=== PATIENT | female | born 1930 | race Caucasian/White ===

== ENCOUNTER 2016-09-03 08:52 | Inpatient (IN) | payer MEDICARE, BC ==
[~2016-09-03] VITALS: Ht 160 cm; Wt 55.8 kg
[2016-09-03] MEDS ORDERED: CENTTAB PO (09:05)
[2016-09-03] MEDS ORDERED: ARIC10TA PO (09:05)
[2016-09-03 11:48] LABS: BASO % 0.2 % (0.0-1.0); EOS # 0.2 K/mm3 (0.0-0.50); EOS % 2.1 % (0.0-3.0); LARGE UNSTAINED CELL # 0.3 K/mm3 (0.0-0.4); LARGE UNSTAINED CELL % 2.3 % (0.0-4.0); LYMPH # 1.7 K/mm3 (1.5-4.5); LYMPH % 15.7 % (24.0-44.0); MEAN CORPUSCULAR HEMOGLOBIN 31.8 pg (27.0-33.0); MEAN CORPUSCULAR HGB CONC 34.2 g/dl (32.0-36.5); MEAN CORPUSCULAR VOLUME 93.1 fl (80.0-96.0); MONO # 0.6 K/mm3 (0.0-0.8); MONO % 5.6 % (0.0-5.0); NEUTROPHILS # 8.1 K/mm3 (1.8-7.7); NEUTROPHILS % 74.1 % (36.0-66.0); PLATELET COUNT, AUTOMATED 332 k/mm3 (150-450); RED CELL DISTRIBUTION WIDTH 13.2 % (11.5-14.5); WHITE BLOOD COUNT 10.9 K/mm3 (4.0-10.0)
[2016-09-03 11:54] LABS: ANION GAP 10 MEQ/L (8-16); BLOOD UREA NITROGEN 19 MG/DL (7-18); CALCIUM LEVEL 10.4 MG/DL (8.8-10.2); CARBON DIOXIDE LEVEL 28 MEQ/L (21-32); CHLORIDE LEVEL 99 MEQ/L (98-107); GLOMERULAR FILTRATION RATE > 60.0 (>32); GLUCOSE, FASTING 111 MG/DL (83-110); MAGNESIUM LEVEL 2.2 MG/DL (1.8-2.4); POTASSIUM SERUM 3.3 MEQ/L (3.5-5.1); SODIUM LEVEL 137 MEQ/L (136-145)
--- NOTE | 2016-09-03 13:10 | REP ---
CHEST, TWO VIEWS: COMPARISON: 06/13/2009. There is no evidence of acute infiltrate. There is mild scattered interstitial fibrotic scarring. Heart is normal in size. There is mild calcification and tortuosity of the thoracic aorta. The mediastinal silhouette is unchanged. There are degenerative changes of the spine. IMPRESSION: Stable chronic findings without evidence of acute pulmonary disease. Signed by Chava Castellon MD 09/03/2016 04:50 P
[2016-09-03] MEDS ORDERED: POTASSIUM CHLORIDE 10 MEQ SR TABLET PO ONE (13:45)
[2016-09-03] MEDS ORDERED: APIXABAN 2.5 MG TAB (ELIQUIS) PO ONE (13:45)
[2016-09-03] MEDS: cefTRIAXone SOD 1 GM in D5W MINI-BAG PLUS 50 ML IV SCH (13:58)
[2016-09-03] MEDS ORDERED: METOPROLOL TART 25 MG TABLET PO ONE (14:00)
[2016-09-03 14:41] LABS: ALBUMIN 3.9 GM/DL (3.2-5.2); ALBUMIN/GLOBULIN RATIO 1.05 (1.00-1.93); ALKALINE PHOSPHATASE 133 U/L (45-117); ALT/SGPT 25 U/L (12-78); ANION GAP 10 MEQ/L (8-16); AST/SGOT 27 U/L (15-37); BILIRUBIN,TOTAL 0.6 MG/DL (0.2-1.0); BLOOD UREA NITROGEN 18 MG/DL (7-18); CALCIUM LEVEL 9.5 MG/DL (8.8-10.2); CARBON DIOXIDE LEVEL 27 MEQ/L (21-32); CHLORIDE LEVEL 99 MEQ/L (98-107); CREATININE FOR GFR 0.82 MG/DL (0.55-1.02); GLOMERULAR FILTRATION RATE > 60.0 (>32); GLUCOSE, FASTING 110 MG/DL (83-110); POTASSIUM SERUM 3.7 MEQ/L (3.5-5.1); SODIUM LEVEL 136 MEQ/L (136-145); TOTAL PROTEIN 7.6 GM/DL (6.4-8.2)
[2016-09-03] MEDS: DONEPEZIL 5 MG TAB PO SCH (17:37)
[2016-09-03] MEDS: MULTIVITAMINS/MINERALS THERAP 1 TAB PO SCH (17:37)
[2016-09-03] MEDS: METOPROLOL TART 12.5 MG PER 1/2 TAB PO SCH (17:39)
--- NOTE | 2016-09-03 18:55 | HPEPDOC ---
General Date of Admission Sep 03, 2016 at 14:18 Primary Care Physician: Isaias Etienne MD Chief Complaint The patient is a 86-year-old female admitted with a reason for visit of Uti and suspected a.fib. Source: Family Exam Limitations: Dementia Timing/Duration: Week(s) (one) Severity: Moderate History of Present Illness Ms. Beard is an 86 y/o female with past medical history of dementia who presents with her son at bedside today. The patient herself is a very poor historian due to advanced dementia and often gets confused at questioning, thus much of her review of systems and history was obtained by her son. Her son states that he has been visiting his mom for the past week but that she usually lives home alone, he has noticed her becoming increasingly fatigued and tired for the past week, she has also been complaining about muscle cramps in her legs that awake her up at night, heartburn and upset stomach which led to one episode of yellow tinged non-bloody emesis 1 day prior. The patient's son states that he gave his mother Tums which helped relieve her heartburn, and has thought that her appetite has been decreased for the past week, but is unsure if she sustained any weight loss. He also states that his mother does not take her donepezil regularly but that he has been giving it to her for the past 3 days he's been visiting. He also noticed her to have a dry nonproductive cough when she would lie down flat and thought she was getting more short of breath with activity for the past week. The patient has a primary care doctor in [facility] but has not seen them in many, many years. The patient's son does not believe that his mother has been experiencing any fever, chills, chest pain or palpitations, at least not what she has admitted to him. Home Medications Scheduled Donepezil Hydrochloride (Aricept) 10 Mg Tab, 10 MG PO DAILY, (Reported) SUPPOSED TO BE QHS-FAMILY MEMBER HAS BEEN GIVING IN THE AM BECAUSE PT WAS NOT TAKING IT Multivitamins (Centrum Silver) 1 Tab Tab, 1 TAB PO DAILY, (Reported) Allergies Coded Allergies: Atenolol (Unverified Allergy, Severe, SOB, 09/03/16) NUTS (Verified Allergy, Unknown, 09/03/16) PT OR FAMILY NOT ABLE TO STATE THE REACTION TO THE NUTS Past Medical History Medical History Dementia Social History Patient lives at home by herself Review of Symptoms Constitutional: Reports: Other (review of systems was largely unobtainable as patient has dementia and has difficulty understanding questions) Pulmonary: Denies: Dyspnea Cardiovascular: Denies: Chest Pain, Palpitations Psych: Reports: Other Psych (dementia) Physical Examination General Exam: Positive: Alert, Cooperative, No Acute Distress Eye Exam: Positive: Conjunctiva & lids normal, EOMI, Negative: Sclera icteric, Ptosis Neck Exam: Positive: Supple Chest Exam: Positive: Clear to auscultation, Normal air movement, Negative: Rales, Rhonchi, Wheezing Heart Exam: Positive: Tachycardic, Normal S1, Normal S2, Murmurs, Negative: Rate Normal Telemetry: Positive: Atrial fibrillation Abdomen Exam: Positive: Normal bowel sounds, Soft, Negative: BS Hyperactive, BS Hypoactive, Tenderness Extremity Exam: Negative: Cyanosis, Edema Vital Signs Vital Signs Date Time Temp Pulse Resp B/P (MAP) Pulse Ox O2 Delivery O2 Flow Rate FiO2 09/03/16 13:56 170/98 09/03/16 12:37 102 95 09/03/16 09:00 97.2 18 Room Air Laboratory Data Labs 24H Laboratory Tests 2 09/03/16 11:25: White Blood Count 10.9H, Red Blood Count 4.40, Hemoglobin 14.0, Hematocrit 41.0 , Mean Corpuscular Volume 93.1, Mean Corpuscular Hemoglobin 31.8, Mean Corpuscular Hemoglobin Concent 34.2, Red Cell Distribution Width 13.2, Platelet Count 332, Neutrophils (%) (Auto) 74.1H, Lymphocytes (%) (Auto) 15.7L, Monocytes (%) (Auto) 5.6H, Eosinophils (%) (Auto) 2.1, Basophils (%) (Auto) 0.2 , Neutrophils # (Auto) 8.1H, Lymphocytes # (Auto) 1.7, Monocytes # (Auto) 0.6, Eosinophils # (Auto) 0.2, Basophils # (Auto) 0.0, Large Unclassified Cells % 2.3 , Large Unclassified Cells # 0.3, Urine Appearance CLOUDYH, Urine Color GABY, Urine pH 5.0, Urine Specific [place] 1.026, Urine Protein 1+H, Urine Glucose (UA ) NEGATIVE, Urine Ketones TRACEH, Urine Urobilinogen 0.2, Urine Bilirubin NEGATIVE, Urine Leukocyte Esterase 2+H, Urine Blood NEGATIVE, Urine Nitrite POSITIVE, Urine WBC (Auto) 44H, Urine RBC (Auto) 21H, Urine Hyaline Casts (Auto ) 0, Urine Bacteria (Auto) 3+H, Urine Squamous Epithelial Cells 8, Urine Mucus ( Auto) SMALL, Urine Sperm (Auto) , Anion Gap 10, Glomerular Filtration Rate > 60.0, Blood Urea Nitrogen 19H, Creatinine 0.90, Sodium Level 137, Potassium Level 3.3L, Chloride Level 99, Carbon Dioxide Level 28, Calcium Level 10.4H, Total Creatine Kinase 150, Magnesium Level 2.2, Creatine Kinase MB 3.5, Creatine Kinase MB Relative Index 2.33, Troponin I 0.08 09/03/16 14:11: Anion Gap 10, Glomerular Filtration Rate > 60.0, Blood Urea Nitrogen 18, Creatinine 0.82, Sodium Level 136, Potassium Level 3.7, Chloride Level 99, Carbon Dioxide Level 27, Calcium Level 9.5, Magnesium Level 2.0, Lactic Acid Level 1.9, Aspartate Amino Transf (AST/SGOT) 27, Alanine Aminotransferase (ALT/ SGPT) 25, Alkaline Phosphatase 133H, Total Bilirubin 0.6, Total Protein 7.6, Albumin 3.9, Albumin/Globulin Ratio 1.05 CBC/BMP Laboratory Tests 09/03/16 11:25 Red Blood Count 4.40, Mean Corpuscular Volume 93.1, Mean Corpuscular Hemoglobin 31.8, Mean Corpuscular Hemoglobin Concent 34.2, Red Cell Distribution Width 13.2 , Neutrophils (%) (Auto) 74.1 H, Lymphocytes (%) (Auto) 15.7 L, Monocytes (%) ( Auto) 5.6 H, Eosinophils (%) (Auto) 2.1, Basophils (%) (Auto) 0.2, Neutrophils # (Auto) 8.1 H, Lymphocytes # (Auto) 1.7, Monocytes # (Auto) 0.6, Eosinophils # (Auto) 0.2, Basophils # (Auto) 0.0, Calcium Level 10.4 H, Total Creatine Kinase 150 09/03/16 14:11 Calcium Level 9.5, Aspartate Amino Transf (AST/SGOT) 27, Alanine Aminotransferase (ALT/SGPT) 25, Alkaline Phosphatase 133 H, Total Bilirubin 0.6 , Total Protein 7.6, Albumin 3.9 Microbiology Microbiology 09/03/16 Blood Culture, Received Pending 09/03/16 Urine Culture, Received Pending Problems (1) UTI (urinary tract infection) Status: Acute Response to Treatment: Stable Problem Text: Patient was found to have urinary tract infection Urine culture pending Had begun patient on ceftriaxone Will continue to monitor (2) Fatigue Status: Acute Response to Treatment: Stable Problem Text: Likely secondary to patient's advanced dementia and urinary tract infection treating UTI with antibiotics PT OT ordered Continue to monitor (3) A-fib Status: Acute Response to Treatment: Stable Problem Text: New onset, ekg in emergency department showed atrial fibrillation Rate 102 Patient admitted to PCU Telemetry monitoring Patient started on Eliquis and metoprolol (4) Hypercalcemia Status: Acute Response to Treatment: Stable Problem Text: The patient's calcium was 10.4, repeat 9.5 Have ordered SPEP, UPEP and vitamin D and PTH Continue to monitor (5) DVT prophylaxis Status: Acute Response to Treatment: Stable Problem Text: SCD teds Plan / VTE VTE Prophylaxis Ordered?: Yes GME ATTESTATION GME ATTESTATION My preceptor for this patient encounter was physically present in the building during the encounter and was fully available. As needed, all aspects of the patient interview, examination, medical decision making process, and medical care plan development were reviewed and approved by the preceptor. Preceptor is aware and concurs with the plan as stated in the body of this note and will attest to such by his/her cosignature. ATTENDING NOTE I was called by ER physician to evaluate a patient with suspected atrial fibrillation, weakness/ fatigue and urinary tract infection. 1. Tachycardia - suspected to be atrial fibrillation, likely sinus tachycardia - Upon review of EKG, the rhythm does not appear to be atrial fibrillation - There is no need to continue with full anticoagulation - Will discontinue Eliquis - Will continue with metoprolol for rate control 2. Urinary tract infection - Will continue with ceftriaxone - Awaiting results of culture 3. Hypercalcemia (mild) - Vitamin D and PTH ordered - c/w gentle IV fluid hydration 4. Weakness / Fatigue - possibly 2/2 deconditioning, dementia, urinary tract infection - will get PT / OT ABDIRIZAK SILVA DO Sep 03, 2016 17:14 AUGUSTUS BAH MD Sep 04, 2016 14:40
[2016-09-03 18:56] LABS: FREE T4 1.13 NG/DL (0.76-1.46)
[2016-09-03] MEDS ORDERED: NS 1,000 ML IV ONE (20:30)
[2016-09-04] MEDS: METOPROLOL TART 12.5 MG PER 1/2 TAB PO SCH ×5 (00:07→23:51)
[2016-09-04 01:05] VITALS: BP 164/85
[2016-09-04 04:00] VITALS: BP 179/94
[2016-09-04 07:10] LABS: BASO % 0.4 % (0.0-1.0); EOS # 0.4 K/mm3 (0.0-0.50); LARGE UNSTAINED CELL # 0.2 K/mm3 (0.0-0.4); LARGE UNSTAINED CELL % 2.5 % (0.0-4.0); LYMPH # 1.5 K/mm3 (1.5-4.5); LYMPH % 16.5 % (24.0-44.0); MEAN CORPUSCULAR HEMOGLOBIN 32.2 pg (27.0-33.0); MEAN CORPUSCULAR HGB CONC 34.5 g/dl (32.0-36.5); MEAN CORPUSCULAR VOLUME 93.3 fl (80.0-96.0); MONO # 0.6 K/mm3 (0.0-0.8); MONO % 6.6 % (0.0-5.0); NEUTROPHILS # 6.3 K/mm3 (1.8-7.7); NEUTROPHILS % 70.1 % (36.0-66.0); PLATELET COUNT, AUTOMATED 262 k/mm3 (150-450); RED CELL DISTRIBUTION WIDTH 13.3 % (11.5-14.5)
[2016-09-04 07:30] LABS: ANION GAP 9 MEQ/L (8-16); BLOOD UREA NITROGEN 15 MG/DL (7-18); CALCIUM LEVEL 8.8 MG/DL (8.8-10.2); CARBON DIOXIDE LEVEL 26 MEQ/L (21-32); CHLORIDE LEVEL 105 MEQ/L (98-107); CREATININE FOR GFR 0.71 MG/DL (0.55-1.02); GLOMERULAR FILTRATION RATE > 60.0 (>32); GLUCOSE, FASTING 93 MG/DL (83-110); POTASSIUM SERUM 4.1 MEQ/L (3.5-5.1); SODIUM LEVEL 140 MEQ/L (136-145)
[2016-09-04 09:52] LABS: FREE T4 1.17 NG/DL (0.76-1.46)
[2016-09-04] MEDS: MULTIVITAMINS/MINERALS THERAP 1 TAB PO SCH (11:29)
[2016-09-04] MEDS: DONEPEZIL 5 MG TAB PO SCH (11:30)
[2016-09-04] MEDS: cefTRIAXone SOD 1 GM in D5W MINI-BAG PLUS 50 ML IV SCH (14:25)
[2016-09-04 16:30] VITALS: BP 172/96
[2016-09-04] MEDS: LISINOPRIL 20 MG TAB PO SCH (18:37)
[2016-09-04] MEDS: ENOXAPARIN 40 MG/0.4 ML SYRINGE (J1650) SC SCH (18:38)
--- NOTE | 2016-09-04 19:23 | IPN ---
DATE: 09/04/2016 SUBJECTIVE: Patient seen and examined in the emergency room holding area. Patient is a poor historian. Shows some signs of dementia. Patient does not have any acute changes since admission. OBJECTIVE: VITAL SIGNS: Temperature 97, pulse 67, respirations 20, blood pressure 179/94, pulse oximetry 96% in room air. GENERAL: Patient is alert and awake. Patient is not fully oriented and shows some signs of dementia. HEENT: Normocephalic, atraumatic. Extraocular motor grossly intact. CARDIOVASCULAR: Positive S1, S2. Regular rate. LUNGS: Clear to auscultation bilaterally. No wheezes. ABDOMEN: Soft, nontender, nondistended. Bowel sounds present. EXTREMITIES: No edema. No cyanosis. LABORATORY DATA: WBC 9, hemoglobin 12.6, hematocrit 36.6, platelet count 262. Sodium 140, potassium 4.1, chloride 105, carbon dioxide 26, BUN 15, creatinine 0.71, GFR greater than 60, fasting glucose 93, calcium 8.8. Thyroid stimulating hormone (TSH) 5.92. Free T4 1.17. Urine culture is pending. ASSESSMENT AND PLAN: 1. Urinary tract infection. On admission, patient was started on Rocephin. Currently, we are waiting for the urine cultures. 2. Hypertension. Patient is started on metoprolol; however, patient continues to have elevated blood pressure. Patient is on lisinopril. Will adjust the blood pressure continuously. 3. Dementia. Patient is on Aricept. 4. Deep venous thrombosis (DVT) prophylaxis. Patient is on thromboembolitic deterrents (TEDs) and sequentials and patient will be on Lovenox.
[2016-09-04 20:00] VITALS: BP 142/90
[2016-09-04 23:59] VITALS: BP 128/63
[2016-09-05] MEDS ORDERED: SLF 3 ML SYR IV PRN (03:15)
[2016-09-05 04:45] VITALS: BP 126/81
[2016-09-05] MEDS: SLF 3 ML SYR IV SCH ×3 (05:01→20:44)
[2016-09-05] MEDS: METOPROLOL TART 12.5 MG PER 1/2 TAB PO SCH (05:01)
[2016-09-05 05:30] LABS: BASO % 0.5 % (0.0-1.0); EOS # 0.4 K/mm3 (0.0-0.50); EOS % 4.4 % (0.0-3.0); LARGE UNSTAINED CELL # 0.2 K/mm3 (0.0-0.4); LARGE UNSTAINED CELL % 1.8 % (0.0-4.0); LYMPH # 1.4 K/mm3 (1.5-4.5); MEAN CORPUSCULAR HEMOGLOBIN 31.2 pg (27.0-33.0); MEAN CORPUSCULAR HGB CONC 33.3 g/dl (32.0-36.5); MEAN CORPUSCULAR VOLUME 93.7 fl (80.0-96.0); MONO # 0.5 K/mm3 (0.0-0.8); MONO % 5.3 % (0.0-5.0); NEUTROPHILS # 6.9 K/mm3 (1.8-7.7); NEUTROPHILS % 72.9 % (36.0-66.0); PLATELET COUNT, AUTOMATED 249 k/mm3 (150-450); RED CELL DISTRIBUTION WIDTH 13.2 % (11.5-14.5); WHITE BLOOD COUNT 9.5 K/mm3 (4.0-10.0)
[2016-09-05 05:45] LABS: ANION GAP 8 MEQ/L (8-16); BLOOD UREA NITROGEN 17 MG/DL (7-18); CALCIUM LEVEL 8.2 MG/DL (8.8-10.2); CARBON DIOXIDE LEVEL 27 MEQ/L (21-32); CHLORIDE LEVEL 105 MEQ/L (98-107); CREATININE FOR GFR 0.76 MG/DL (0.55-1.02); GLOMERULAR FILTRATION RATE > 60.0 (>32); GLUCOSE, FASTING 93 MG/DL (83-110); POTASSIUM SERUM 4.2 MEQ/L (3.5-5.1); SODIUM LEVEL 140 MEQ/L (136-145)
[2016-09-05 08:00] VITALS: BP 129/87
--- NOTE | 2016-09-05 08:18 | ECGEPIP ---
Stationary ECG Study [facility] Test Date: 2016-09-04 Pat Name: ANALILIA BONNER Department: Room: [place] [address] Gender: F Telecommunication Tower Technician: LENNY : 1930 Requested By: BRIANNE FAULKNER Order Number: [id number] Reading MD: Cj Castelan Measurements Intervals Boaz Rate: 67 P: 67 VT: 156 QRS: -16 QRSD: 113 T: 30 QT: 431 QTc: 457 Interpretive Statements Normal sinus rhythm with PACs Right bundle branch block Compared to prior tracing of 09/03/2016, atrial fibrillation has resolved (but prior tracing baseline artifact makes rhythm interpretation difficult) Electronically Signed On 09-05-2016 8:18:17 EDT by Cj Castelan
--- NOTE | 2016-09-05 08:28 | ECGEPIP ---
Stationary ECG Study [facility] - ED Test Date: 2016-09-03 Pat Name: ANALILIA BONNER Department: Room: - Gender: F Design And Sales Consultant: : 1930 Requested By: YOLANDA Brand PA-C Order Number: [id number] Reading MD: Renetta Chadwick Measurements Intervals Joanna Rate: 102 P: KS: 0 QRS: 3 QRSD: 122 T: 23 QT: 366 QTc: 478 Interpretive Statements ATRIAL FIBRILLATION WITH RAPID VENTRICULAR RESPONSE PROBABLE - BASELINE ARTIFACT LIMITS INTERPRETATION RIGHT BUNDLE BRANCH BLOCK NO PRIOR FOR COMPARISON Electronically Signed On 09-05-2016 8:28:22 EDT by Renetta Chadwick
[2016-09-05] MEDS: MULTIVITAMINS/MINERALS THERAP 1 TAB PO SCH (08:58)
[2016-09-05] MEDS: DONEPEZIL 5 MG TAB PO SCH (08:58)
[2016-09-05] MEDS: LISINOPRIL 20 MG TAB PO SCH (08:58)
[2016-09-05 11:35] VITALS: BP 130/90
[2016-09-05] MEDS: cefTRIAXone SOD 1 GM in D5W MINI-BAG PLUS 50 ML IV SCH (13:06)
--- NOTE | 2016-09-05 13:52 | IPNPDOC ---
Subjective Date Seen The patient was seen on 09/05/16. Subjective Chief Complaint/HPI This is an 86-year-old patient of Dr. Isaias Etienne, with a history of senile dementia, paroxysmal supraventricular tachycardia, GERD, anxiety, and COPD he was admitted 09/03/2016 for altered mental status, UTI, and atrial fibrillation without rapid ventricular response. Events since last encounter Patient states that she feels well today. She states that she doesn't feel unsteady on her feet, and in fact boasts "I jog on a treadmill twice every day. " She also believes that it's 2008. Later discussed with the patient's son, who states that the patient is minimally active at home, and has declined to the point that he has moved from [place] to become her primary caregiver. Patient otherwise has no complaints or concerns. Sons only concern is that the patient does not eat or drink much. He also feels like she sleeps too frequently, and doesn't seem interested in any activities. Constitutional: Denies: Chills, Fever, Malaise Skin: Denies: Rash, Lesions Pulmonary: Denies: Dyspnea, Cough Cardiovascular: Denies: Chest Pain, Palpitations, Orthopnea Gastrointestinal: Denies: Nausea, Vomiting, Abdominal Pain, Diarrhea, Constipation Genitourinary: Denies: Dysuria, Frequency, Incontinence Hematologic: Denies: Bruising Neurological: Reports: Confusion Psych: Reports: Depression, Memory Issues, Denies: Thoughts of Self Harm, Anger, Thoughts of Harming Other Objective Physical Examination General Exam: Positive: Alert, Cooperative, No Acute Distress Eye Exam: Positive: Conjunctiva & lids normal, EOMI, Negative: Sclera icteric, Ptosis ENT Exam: Positive: Mucous membr. moist/pink Neck Exam: Positive: Supple, Negative: JVD Chest Exam: Positive: Clear to auscultation, Normal air movement, Negative: Rales, Rhonchi, Wheezing Heart Exam: Positive: Normal S1, Normal S2, Murmurs (1/6 systolic ejection murmur), Negative: Rate Normal Telemetry: Positive: Atrial fibrillation (without rapid ventricular response) Abdomen Exam: Positive: Normal bowel sounds, Soft, Negative: BS Hyperactive, BS Hypoactive, Tenderness Extremity Exam: Positive: Normal pulses, Negative: Cyanosis, Edema Skin Exam: Positive: Nl turgor and temperature Psych Exam: Positive: Oriented x 3 (oriented to [employer], name, and president but not year), Negative: Mood NL (flat affect), Memory Intact (believes that she still jogs on a treadmill twice every day, when she is in fact minimally active) Assessment /Plan Problems (1) UTI (urinary tract infection) Status: Acute Response to Treatment: Stable Problem Text: Escherichia coli pansensitive. -Change to Keflex 500 mg PO twice daily (2) Fatigue Status: Acute Response to Treatment: Stable Problem Text: Advanced dementia and urinary tract infection may be contributed factors. However, patient has positive depression screening. -By mouth Keflex - Follow up PT recommendations -Start mirtazapine 50 mg at bedtime (3) A-fib Status: Acute Response to Treatment: Stable Problem Text: New onset, ekg in emergency department showed atrial fibrillation without rapid ventricular response. Unclear why she was started on a beta tanna at this point, as she was volume depleted and is elderly. I discussed risks and benefits of anticoagulation in the setting of atrial fibrillation her age. Strongly recommended against Coumadin or even full strength aspirin in her case. Would limit the patient to daily baby aspirin, as she is at high risk of intracranial hemorrhage. Patient was never in rapid ventricular response, and is currently asymptomatic. She does not need further continuous telemetry. -Transfer to the floor -Stop beta tanna as patient has been bradycardic all night -Daily baby aspirin for stroke risk reduction (4) DVT prophylaxis Status: Acute Response to Treatment: Stable Problem Text: SCD teds Plan/VTE VTE Prophylaxis Ordered?: Yes (Lovenox 40 mg daily, would not recommend discharging on anticoagulation) Plan Advance Directives: Other Advance Directive (reviewed most form with patient's son who is her health proxy. Patient currently wishes to be full code.) Plan for discharge 09/06/2016 pending stable A. fib and PT recommendations for home safety. When ready for discharge, she will return home with her son. VS, I&O, 24H, Fishbone Vital Signs/I&O Vital Signs Date Time Temp Pulse Resp B/P (MAP) Pulse Ox O2 Delivery O2 Flow Rate FiO2 09/05/16 11:35 99.1 130 18 130/90 (103) 96 Room Air I&O- Last 24 Hours up to 6 AM 09/05/16 05:59 Intake Total 1770 ml Output Total 1300 ml Balance 470 ml Laboratory Data 24H LABS Laboratory Tests 2 09/05/16 05:15: White Blood Count 9.5, Red Blood Count 3.87L, Hemoglobin 12.1, Hematocrit 36.3, Mean Corpuscular Volume 93.7, Mean Corpuscular Hemoglobin 31.2, Mean Corpuscular Hemoglobin Concent 33.3, Red Cell Distribution Width 13.2, Platelet Count 249, Neutrophils (%) (Auto) 72.9H, Lymphocytes (%) (Auto) 15.0L, Monocytes (%) (Auto) 5.3H, Eosinophils (%) (Auto) 4.4H, Basophils (%) (Auto) 0.5 , Neutrophils # (Auto) 6.9, Lymphocytes # (Auto) 1.4L, Monocytes # (Auto) 0.5, Eosinophils # (Auto) 0.4, Basophils # (Auto) 0.0, Large Unclassified Cells % 1.8 , Large Unclassified Cells # 0.2, Anion Gap 8, Glomerular Filtration Rate > 60.0 , Blood Urea Nitrogen 17, Creatinine 0.76, Sodium Level 140, Potassium Level 4.2 , Chloride Level 105, Carbon Dioxide Level 27, Calcium Level 8.2L CBC/BMP Laboratory Tests 09/05/16 05:15 Red Blood Count 3.87 L, Mean Corpuscular Volume 93.7, Mean Corpuscular Hemoglobin 31.2, Mean Corpuscular Hemoglobin Concent 33.3, Red Cell Distribution Width 13.2, Neutrophils (%) (Auto) 72.9 H, Lymphocytes (%) (Auto) 15.0 L, Monocytes (%) (Auto) 5.3 H, Eosinophils (%) (Auto) 4.4 H, Basophils (%) (Auto) 0.5, Neutrophils # (Auto) 6.9, Lymphocytes # (Auto) 1.4 L, Monocytes # ( Auto) 0.5, Eosinophils # (Auto) 0.4, Basophils # (Auto) 0.0, Calcium Level 8.2 L Microbiology Microbiology 09/03/16 Blood Culture - Preliminary, Resulted No growth after 24 hours . All specim... 09/03/16 Blood Culture - Preliminary, Resulted No growth after 24 hours . All specim... 09/03/16 Urine Culture - Final, Complete Escherichia Coli ADAIR ATKINSON MD Sep 05, 2016 13:52
[2016-09-05 15:17] VITALS: BP 134/96
[2016-09-05] MEDS: ENOXAPARIN 40 MG/0.4 ML SYRINGE (J1650) SC SCH (18:21)
[2016-09-05] MEDS: MIRTAZAPINE 15 MG TAB PO SCH (20:44)
[2016-09-05] MEDS: CEPHALEXIN 500 MG CAP PO SCH (20:44)
[2016-09-05 20:55] VITALS: BP 121/66
[2016-09-06] MEDS: SLF 3 ML SYR IV SCH ×3 (05:48→21:19)
[2016-09-06 06:33] LABS: BASO # 0.1 K/mm3 (0.0-0.2); BASO % 0.7 % (0.0-1.0); EOS # 0.5 K/mm3 (0.0-0.50); EOS % 5.3 % (0.0-3.0); LARGE UNSTAINED CELL # 0.2 K/mm3 (0.0-0.4); LARGE UNSTAINED CELL % 2.3 % (0.0-4.0); MEAN CORPUSCULAR HEMOGLOBIN 30.7 pg (27.0-33.0); MEAN CORPUSCULAR HGB CONC 32.5 g/dl (32.0-36.5); MEAN CORPUSCULAR VOLUME 94.3 fl (80.0-96.0); MONO # 0.6 K/mm3 (0.0-0.8); MONO % 6.5 % (0.0-5.0); NEUTROPHILS # 5.5 K/mm3 (1.8-7.7); NEUTROPHILS % 62.2 % (36.0-66.0); PLATELET COUNT, AUTOMATED 285 k/mm3 (150-450); RED CELL DISTRIBUTION WIDTH 13.4 % (11.5-14.5); WHITE BLOOD COUNT 8.8 K/mm3 (4.0-10.0)
[2016-09-06 06:35] LABS: ANION GAP 7 MEQ/L (8-16); BLOOD UREA NITROGEN 20 MG/DL (7-18); CALCIUM LEVEL 8.5 MG/DL (8.8-10.2); CARBON DIOXIDE LEVEL 27 MEQ/L (21-32); CHLORIDE LEVEL 106 MEQ/L (98-107); CREATININE FOR GFR 0.74 MG/DL (0.55-1.02); GLOMERULAR FILTRATION RATE > 60.0 (>32); GLUCOSE, FASTING 92 MG/DL (83-110); SODIUM LEVEL 140 MEQ/L (136-145)
[2016-09-06 07:00] VITALS: BP 107/67
[2016-09-06] MEDS: LISINOPRIL 20 MG TAB PO SCH ×3 (09:00→10:00)
[2016-09-06] MEDS: CEPHALEXIN 500 MG CAP PO SCH ×2 (09:54→21:19)
[2016-09-06] MEDS: DONEPEZIL 5 MG TAB PO SCH (09:54)
[2016-09-06 09:56] VITALS: BP 104/72
--- NOTE | 2016-09-06 11:14 | IPNPDOC ---
Subjective Date Seen The patient was seen on 09/06/16. Subjective Chief Complaint/HPI The patient is a 86-year-old female admitted with a reason for visit of Afib Uti. General: Denies: Chills, Night Sweats Constitutional: Denies: Chills, Fever Eyes: Denies: Pain, Vision change ENT: Denies: Head Aches, Ear Pain Skin: Denies: Rash, Lesions Pulmonary: Denies: Dyspnea, Cough Cardiovascular: Denies: Chest Pain, Palpitations Gastrointestinal: Denies: Nausea, Vomiting Genitourinary: Denies: Dysuria, Frequency Hematologic: Denies: Bruising, Bleeding Excessively Musculoskeletal: Denies: Neck Pain, Back Pain Objective Physical Examination General Exam: Positive: Alert (to person, place, situation, but not time), Cooperative, No Acute Distress Eye Exam: Positive: Conjunctiva & lids normal, EOMI, Negative: Sclera icteric, Ptosis ENT Exam: Positive: Mucous membr. moist/pink Neck Exam: Positive: Supple, Negative: JVD Chest Exam: Positive: Clear to auscultation, Normal air movement, Negative: Rales, Rhonchi, Wheezing Heart Exam: Positive: Rate Normal, Normal S1, Normal S2 Abdomen Exam: Positive: Normal bowel sounds, Soft, Negative: BS Hyperactive, BS Hypoactive, Tenderness Extremity Exam: Positive: Normal pulses, Negative: Cyanosis, Edema Skin Exam: Positive: Nl turgor and temperature Assessment /Plan Problems (1) UTI (urinary tract infection) Status: Acute Response to Treatment: Stable, Improving Problem Text: Urine culture noted to be Escherichia coli pansensitive. Continue Keflex 500 mg PO twice daily (2) Fatigue Status: Acute Response to Treatment: Stable Problem Text: Advanced dementia and urinary tract infection may have worsened the patients overall clinical condition. Patient appears to be alert, oriented 3 today We'll have her work with physical therapy (3) A-fib Status: Resolved Response to Treatment: Improving, Controlled Problem Text: New onset, Ekg in emergency department showed atrial fibrillation with rapid ventricular response Follow-up EKG noted to be in normal sinus rhythm with PACs Patient's heart rate has been controlled here over the last 24 hours The patient is not a candidate for anticoagulation given her fall/bleeding risk We will continue to monitor the patient (4) DVT prophylaxis Status: Chronic Response to Treatment: Stable Problem Text: SCD teds Plan/VTE VTE Prophylaxis Ordered?: Yes (Lovenox 40 mg daily, would not recommend discharging on anticoagulation) Disposition We will further address the patient's disposition tomorrow with PFS as the patient does have a son who is moving to the area from [place] to better take care of his mother as she is currently living by herself. VS, I&O, 24H, Fishbone Vital Signs/I&O Vital Signs Date Time Temp Pulse Resp B/P (MAP) Pulse Ox O2 Delivery O2 Flow Rate FiO2 09/06/16 10:00 104/72 09/06/16 07:00 96.8 77 17 97 Room Air I&O- Last 24 Hours up to 6 AM 09/06/16 06:00 Intake Total 840 ml Output Total 1050 ml Balance -210 ml Laboratory Data 24H LABS Laboratory Tests 2 09/06/16 05:56: White Blood Count 8.8, Red Blood Count 4.39, Hemoglobin 13.5, Hematocrit 41.4, Mean Corpuscular Volume 94.3, Mean Corpuscular Hemoglobin 30.7, Mean Corpuscular Hemoglobin Concent 32.5, Red Cell Distribution Width 13.4, Platelet Count 285, Neutrophils (%) (Auto) 62.2, Lymphocytes (%) (Auto) 23.0L, Monocytes (%) (Auto) 6.5H, Eosinophils (%) (Auto) 5.3H, Basophils (%) (Auto) 0.7, Neutrophils # (Auto) 5.5, Lymphocytes # (Auto) 2.0, Monocytes # (Auto) 0.6, Eosinophils # (Auto) 0.5, Basophils # (Auto) 0.1, Large Unclassified Cells % 2.3 , Large Unclassified Cells # 0.2, Anion Gap 7L, Glomerular Filtration Rate > 60.0, Blood Urea Nitrogen 20H, Creatinine 0.74, Sodium Level 140, Potassium Level 4.0, Chloride Level 106, Carbon Dioxide Level 27, Calcium Level 8.5L CBC/BMP Laboratory Tests 09/06/16 05:56 Red Blood Count 4.39, Mean Corpuscular Volume 94.3, Mean Corpuscular Hemoglobin 30.7, Mean Corpuscular Hemoglobin Concent 32.5, Red Cell Distribution Width 13.4 , Neutrophils (%) (Auto) 62.2, Lymphocytes (%) (Auto) 23.0 L, Monocytes (%) ( Auto) 6.5 H, Eosinophils (%) (Auto) 5.3 H, Basophils (%) (Auto) 0.7, Neutrophils # (Auto) 5.5, Lymphocytes # (Auto) 2.0, Monocytes # (Auto) 0.6, Eosinophils # (Auto) 0.5, Basophils # (Auto) 0.1, Calcium Level 8.5 L Microbiology Microbiology 09/03/16 Blood Culture - Preliminary, Resulted No Growth after 48 hours. All Specime... 09/03/16 Blood Culture - Preliminary, Resulted No Growth after 48 hours. All Specime... 09/03/16 Urine Culture - Final, Complete Escherichia Coli ESCOBAR MONTANEZ MD Sep 06, 2016 11:14
[2016-09-06 14:00] VITALS: BP 102/57
[2016-09-06] MEDS: ENOXAPARIN 40 MG/0.4 ML SYRINGE (J1650) SC SCH (17:47)
[2016-09-06] MEDS: MIRTAZAPINE 15 MG TAB PO SCH (21:19)
[2016-09-06 22:00] VITALS: BP 133/97
[2016-09-07] MEDS: SLF 3 ML SYR IV SCH ×2 (05:44→13:39)
[2016-09-07 06:00] VITALS: BP 118/66
[2016-09-07 08:02] LABS: BASO % 0.4 % (0.0-1.0); EOS # 0.5 K/mm3 (0.0-0.50); LARGE UNSTAINED CELL # 0.2 K/mm3 (0.0-0.4); LARGE UNSTAINED CELL % 2.8 % (0.0-4.0); LYMPH # 2.1 K/mm3 (1.5-4.5); LYMPH % 25.7 % (24.0-44.0); MEAN CORPUSCULAR HEMOGLOBIN 32.4 pg (27.0-33.0); MEAN CORPUSCULAR HGB CONC 34.4 g/dl (32.0-36.5); MEAN CORPUSCULAR VOLUME 94.2 fl (80.0-96.0); MONO # 0.5 K/mm3 (0.0-0.8); MONO % 5.9 % (0.0-5.0); NEUTROPHILS # 4.8 K/mm3 (1.8-7.7); NEUTROPHILS % 59.3 % (36.0-66.0); PLATELET COUNT, AUTOMATED 286 k/mm3 (150-450); RED CELL DISTRIBUTION WIDTH 13.4 % (11.5-14.5); WHITE BLOOD COUNT 8.1 K/mm3 (4.0-10.0)
[2016-09-07 08:06] LABS: ANION GAP 8 MEQ/L (8-16); BLOOD UREA NITROGEN 24 MG/DL (7-18); CALCIUM LEVEL 8.6 MG/DL (8.8-10.2); CARBON DIOXIDE LEVEL 27 MEQ/L (21-32); CHLORIDE LEVEL 107 MEQ/L (98-107); CREATININE FOR GFR 0.86 MG/DL (0.55-1.02); GLOMERULAR FILTRATION RATE > 60.0 (>32); GLUCOSE, FASTING 87 MG/DL (83-110); POTASSIUM SERUM 4.4 MEQ/L (3.5-5.1); SODIUM LEVEL 142 MEQ/L (136-145)
[2016-09-07] MEDS: CEPHALEXIN 500 MG CAP PO SCH (08:15)
[2016-09-07] MEDS: DONEPEZIL 5 MG TAB PO SCH (08:15)
[2016-09-07 08:22] VITALS: BP 118/66
[2016-09-07] MEDS: LISINOPRIL 20 MG TAB PO SCH (08:22)
--- NOTE | 2016-09-07 13:55 | IPNPDOC ---
Subjective Date Seen The patient was seen on 09/07/16. Subjective Chief Complaint/HPI The patient is a 86-year-old female admitted with a reason for visit of Afib Uti. General: Denies: Chills, Night Sweats Constitutional: Denies: Chills, Fever Eyes: Denies: Pain, Vision change ENT: Denies: Head Aches, Ear Pain Skin: Denies: Rash, Lesions Pulmonary: Denies: Dyspnea, Cough Cardiovascular: Denies: Chest Pain, Palpitations Gastrointestinal: Denies: Nausea, Vomiting Genitourinary: Denies: Dysuria, Frequency Hematologic: Denies: Bruising Musculoskeletal: Denies: Neck Pain, Back Pain Objective Physical Examination General Exam: Positive: Alert (to person, place, situation, but not time), Cooperative, No Acute Distress Eye Exam: Positive: Conjunctiva & lids normal, EOMI, Negative: Sclera icteric, Ptosis ENT Exam: Positive: Mucous membr. moist/pink Neck Exam: Positive: Supple, Negative: JVD Chest Exam: Positive: Clear to auscultation, Normal air movement, Negative: Rales, Rhonchi, Wheezing Heart Exam: Positive: Rate Normal, Normal S1, Normal S2 Abdomen Exam: Positive: Normal bowel sounds, Soft, Negative: BS Hyperactive, BS Hypoactive, Tenderness Extremity Exam: Positive: Normal pulses, Negative: Cyanosis, Edema Skin Exam: Positive: Nl turgor and temperature Assessment /Plan Problems (1) UTI (urinary tract infection) Status: Acute Response to Treatment: Stable, Improving Problem Text: Urine culture noted to be Escherichia coli pansensitive. Continue Keflex 500 mg PO twice daily (2) Fatigue Status: Acute Response to Treatment: Stable Problem Text: Advanced dementia and urinary tract infection may have worsened the patients overall clinical condition. Patient appears to be alert, oriented 3 today We'll have her work with physical/occupational therapy (3) A-fib Status: Resolved Response to Treatment: Improving, Controlled Problem Text: New onset, Ekg in emergency department showed atrial fibrillation with rapid ventricular response Follow-up EKG noted to be in normal sinus rhythm with PACs Patient's heart rate has been controlled here over the last 24 hours The patient is not a candidate for anticoagulation given her fall/bleeding risk We will continue to monitor the patient (4) DVT prophylaxis Status: Chronic Response to Treatment: Stable Problem Text: SCD teds Plan/VTE VTE Prophylaxis Ordered?: Yes (Lovenox 40 mg daily, would not recommend discharging on anticoagulation) Disposition We'll continue to work with PFS and the patient's son regarding further delineation of the patient's disposition. VS, I&O, 24H, Fishbone Vital Signs/I&O Vital Signs Date Time Temp Pulse Resp B/P (MAP) Pulse Ox O2 Delivery O2 Flow Rate FiO2 09/07/16 08:22 118/66 09/07/16 06:00 98.1 68 18 96 Room Air I&O- Last 24 Hours up to 6 AM 09/07/16 06:00 Intake Total 1140 ml Output Total 650 ml Balance 490 ml Laboratory Data 24H LABS Laboratory Tests 2 09/07/16 07:25: White Blood Count 8.1, Red Blood Count 4.48, Hemoglobin 14.5, Hematocrit 42.2, Mean Corpuscular Volume 94.2, Mean Corpuscular Hemoglobin 32.4, Mean Corpuscular Hemoglobin Concent 34.4, Red Cell Distribution Width 13.4, Platelet Count 286, Neutrophils (%) (Auto) 59.3, Lymphocytes (%) (Auto) 25.7, Monocytes ( %) (Auto) 5.9H, Eosinophils (%) (Auto) 6.0H, Basophils (%) (Auto) 0.4, Neutrophils # (Auto) 4.8, Lymphocytes # (Auto) 2.1, Monocytes # (Auto) 0.5, Eosinophils # (Auto) 0.5, Basophils # (Auto) 0.0, Large Unclassified Cells % 2.8 , Large Unclassified Cells # 0.2, Anion Gap 8, Glomerular Filtration Rate > 60.0 , Blood Urea Nitrogen 24H, Creatinine 0.86, Sodium Level 142, Potassium Level 4.4, Chloride Level 107, Carbon Dioxide Level 27, Calcium Level 8.6L CBC/BMP Laboratory Tests 09/07/16 07:25 Red Blood Count 4.48, Mean Corpuscular Volume 94.2, Mean Corpuscular Hemoglobin 32.4, Mean Corpuscular Hemoglobin Concent 34.4, Red Cell Distribution Width 13.4 , Neutrophils (%) (Auto) 59.3, Lymphocytes (%) (Auto) 25.7, Monocytes (%) (Auto ) 5.9 H, Eosinophils (%) (Auto) 6.0 H, Basophils (%) (Auto) 0.4, Neutrophils # ( Auto) 4.8, Lymphocytes # (Auto) 2.1, Monocytes # (Auto) 0.5, Eosinophils # (Auto ) 0.5, Basophils # (Auto) 0.0, Calcium Level 8.6 L Microbiology Microbiology 09/03/16 Blood Culture - Preliminary, Resulted No Growth after 72 hours. All specime... 09/03/16 Blood Culture - Preliminary, Resulted No Growth after 72 hours. All specime... 09/03/16 Urine Culture - Final, Complete Escherichia Coli ESCOBAR MONTANEZ MD September 07, 2016 13:55
[2016-09-07 14:00] VITALS: BP 131/81
[2016-09-07] MEDS ORDERED: MIRT15TA3 PO (14:40)
[2016-09-07] MEDS ORDERED: CEPH500C PO (14:40)
--- NOTE | 2016-09-07 15:50 | DS.PDOC ---
Discharge Summary General Date of Admission Sep 03, 2016 at 14:18 Date of Discharge 09/07/16 Discharge Summary PROCEDURES PERFORMED DURING STAY: None. ADMITTING DIAGNOSES: 1. Urinary tract infection 2. Atrial fibrillation with rapid ventricular rate. DISCHARGE DIAGNOSES: 1. Urinary tract infection 2. Atrial fibrillation with rapid ventricular rate. COMPLICATIONS/CHIEF COMPLAINT: Afib Uti. HISTORY OF PRESENT ILLNESS: . 86 y/o female with past medical history of dementia presented to the ER with her son with a chief complaint of altered mental status. The patient herself is a very poor historian due to advanced dementia and much of her review of systems and history was obtained by ED records and her son. According to the patient's son the patient usually lives home alone, he has noticed her becoming increasingly fatigued and tired for the past week. He reports that she appeared to be more somnolent and confused compared to her baseline. In the ER, the patient was noted to be in atrial fibrillation with rapid ventricular rate. In addition, laboratory work was notable for urinalysis suggestive of a urinary tract infection. The patient was admitted to the hospitalist service for further evaluation and management During the patient's hospital stay here her urinary tract infection was treated initially with ceftriaxone, and transitioned to by mouth Keflex after she was found to have pansensitive Escherichia coli on urinary cultures. The patient's mentation subsequently improved over the next 24 hours. In addition, the patient 's atrial fibrillation resolved and the patient was noted to be in normal sinus rhythm. In addition, given the patient's advanced age, fall risk, and overall clinical condition it was deemed that the patient was not a candidate for anticoagulation. This was discussed at length with the patient's son who is at bedside and agrees with the above. The patient was seen by physical and occupational therapy and she has been cleared to return home. In addition, our patient family services staff has discussed with the patient and her son about services they are eligible for when they go home for a safe disposition transition. At this time we will provide a home health referral for services. The patient has been advised to follow-up with her primary care physician within one week. DISCHARGE MEDICATIONS: Please see below. ALLERGIES: Please see below. PHYSICAL EXAMINATION ON DISCHARGE: VITAL SIGNS: Please see below. General Exam: Positive: Alert (to person, place, situation, but not time), Cooperative, No Acute Distress Eye Exam: Positive: Conjunctiva & lids normal, EOMI, Negative: Sclera icteric, Ptosis ENT Exam: Positive: Mucous membr. moist/pink Neck Exam: Positive: Supple, Negative: JVD Chest Exam: Positive: Clear to auscultation, Normal air movement, Negative: Rales, Rhonchi, Wheezing Heart Exam: Positive: Rate Normal, Normal S1, Normal S2 Abdomen Exam: Positive: Normal bowel sounds, Soft, Negative: BS Hyperactive, BS Hypoactive, Tenderness Extremity Exam: Positive: Normal pulses, Negative: Cyanosis, Edema LABORATORY DATA: Please see below. IMAGING: CHEST, TWO VIEWS: COMPARISON: 06/13/2009. There is no evidence of acute infiltrate. There is mild scattered interstitial fibrotic scarring. Heart is normal in size. There is mild calcification and tortuosity of the thoracic aorta. The mediastinal silhouette is unchanged. There are degenerative changes of the spine. IMPRESSION: Stable chronic findings without evidence of acute pulmonary disease. PROGNOSIS: Medically stable at this time ACTIVITY: As tolerated. DIET: . 2 g low sodium diet DISCHARGE PLAN: DISPOSITION: . DISCHARGE INSTRUCTIONS: 1. . Follow-up with primary care physician within one week 2. Return to the ER if symptoms were to return or worsen. DISCHARGE CONDITION: Stable. TIME SPENT ON DISCHARGE: Greater than 30 minutes. Vital Signs/I&Os Vital Signs Date Time Temp Pulse Resp B/P (MAP) Pulse Ox O2 Delivery O2 Flow Rate FiO2 09/07/16 09:00 Room Air 09/07/16 08:22 118/66 09/07/16 06:00 98.1 68 18 96 I&O- Last 24 Hours up to 6 AM 09/07/16 05:59 Intake Total 1140 ml Output Total 950 ml Balance 190 ml Laboratory Data Labs 24H Laboratory Tests 2 09/07/16 07:25: White Blood Count 8.1, Red Blood Count 4.48, Hemoglobin 14.5, Hematocrit 42.2, Mean Corpuscular Volume 94.2, Mean Corpuscular Hemoglobin 32.4, Mean Corpuscular Hemoglobin Concent 34.4, Red Cell Distribution Width 13.4, Platelet Count 286, Neutrophils (%) (Auto) 59.3, Lymphocytes (%) (Auto) 25.7, Monocytes ( %) (Auto) 5.9H, Eosinophils (%) (Auto) 6.0H, Basophils (%) (Auto) 0.4, Neutrophils # (Auto) 4.8, Lymphocytes # (Auto) 2.1, Monocytes # (Auto) 0.5, Eosinophils # (Auto) 0.5, Basophils # (Auto) 0.0, Large Unclassified Cells % 2.8 , Large Unclassified Cells # 0.2, Anion Gap 8, Glomerular Filtration Rate > 60.0 , Blood Urea Nitrogen 24H, Creatinine 0.86, Sodium Level 142, Potassium Level 4.4, Chloride Level 107, Carbon Dioxide Level 27, Calcium Level 8.6L CBC/BMP Laboratory Tests 09/07/16 07:25 Red Blood Count 4.48, Mean Corpuscular Volume 94.2, Mean Corpuscular Hemoglobin 32.4, Mean Corpuscular Hemoglobin Concent 34.4, Red Cell Distribution Width 13.4 , Neutrophils (%) (Auto) 59.3, Lymphocytes (%) (Auto) 25.7, Monocytes (%) (Auto ) 5.9 H, Eosinophils (%) (Auto) 6.0 H, Basophils (%) (Auto) 0.4, Neutrophils # ( Auto) 4.8, Lymphocytes # (Auto) 2.1, Monocytes # (Auto) 0.5, Eosinophils # (Auto ) 0.5, Basophils # (Auto) 0.0, Calcium Level 8.6 L Microbiology Microbiology 09/03/16 Blood Culture - Preliminary, Resulted No Growth after 72 hours. All specime... 09/03/16 Blood Culture - Preliminary, Resulted No Growth after 72 hours. All specime... 09/03/16 Urine Culture - Final, Complete Escherichia Coli Discharge Medications Scheduled Cephalexin Monohydrate (Cephalexin) 500 Mg Cap, 500 MG PO BID Donepezil Hydrochloride (Aricept) 10 Mg Tab, 10 MG PO DAILY, (Reported) SUPPOSED TO BE QHS-FAMILY MEMBER HAS BEEN GIVING IN THE AM BECAUSE PT WAS NOT TAKING IT Mirtazapine (Mirtazapine) 15 Mg Tab, 15 MG PO QHS Multivitamins (Centrum Silver) 1 Tab Tab, 1 TAB PO DAILY, (Reported) Allergies Coded Allergies: Atenolol (Unverified Allergy, Severe, SOB, 09/03/16) NUTS (Verified Allergy, Unknown, 09/03/16) PT OR FAMILY NOT ABLE TO STATE THE REACTION TO THE NUTS ESCOBAR MONTANEZ MD September 07, 2016 15:50
== END 2016-09-07 16:21 | disposition home health service (06) | DRG 690 ==
LOC: M ED 10:49 → M ED INP 14:18 → M PCU 09-04 16:30 → M MSPAV 09-05 11:30
PROVIDERS: ADMIT Internal Medicine; ATTEND Internal Medicine
DX: N39.0 Urinary tract infection, site not specified (principal); I47.1 Supraventricular tachycardia; J44.9 Chronic obstructive pulmonary disease, unspecified; F41.9 Anxiety disorder, unspecified; B96.20 Unspecified Escherichia coli [E. coli] as the cause of diseases classified elsewhere; I10 Essential (primary) hypertension; K21.9 Gastro-esophageal reflux disease without esophagitis; R53.83 Other fatigue; I48.91 Unspecified atrial fibrillation; E83.52 Hypercalcemia; F03.90 Unspecified dementia, unspecified severity, without behavioral disturbance, psychotic disturbance, mood disturbance, and anxiety; Z88.8 Allergy status to other drugs, medicaments and biological substances; Z91.018 Allergy to other foods; Z79.899 Other long term (current) drug therapy

== ENCOUNTER → 2016-09-17 | Outpatient (REF) | payer MEDICARE, BC ==
[~2016-09-17] MED LIST: ARIC10TA PO; CENTTAB PO; CEPH500C PO; MIRT15TA3 PO
[2016-09-17 13:20] LABS: FREE T4 0.87 NG/DL (0.76-1.46)
== END ==
LOC: M SFHCADAM 09:16
PROVIDERS: ATTEND Family Medicine
DX: I47.1 Supraventricular tachycardia (principal); N39.0 Urinary tract infection, site not specified; Z23 Encounter for immunization
CPT/HCPCS: 81001; 84439; 84443; 87086; 90670; 99497; G0009; G0463

== ENCOUNTER → 2016-11-04 | Outpatient (CLI) | payer MEDICARE, BC ==
[~2016-11-04] MED LIST changes: -ARIC10TA PO; +ARIC1TAB2 PO; +CALCTAB68 PO; +KETO5OPD OU; +MURO5OIN OU; +NYQU1LIQ PO; +PANT40TA2; +PRED1SUS OU; +TOPR25TA PO; +XARE20TA PO
--- NOTE | 2016-11-04 14:44 | REP ---
Clinical: Chest pain and history of gastroesophageal reflux disease . Comparison: 09/03/2016 . Technique: PA and lateral. Findings: The mediastinum and cardiac silhouette are within normal limits and stable. The lung colon demonstrate diffuse chronic interstitial changes without acute consolidation, effusion, or pneumothorax. The skeletal structures demonstrate osteopenia and degenerative changes. Impression: Chronic stable changes. No acute cardiopulmonary process. Signed by Keny Vail MD 11/04/2016 02:36 P
--- NOTE | 2016-11-04 14:46 | REP ---
Clinical: Pain with prior trauma. Technique: AP, lateral, bilateral oblique and sunrise views of the left knee. Findings: Moderate tricompartmental osteoarthritic degenerative changes are appreciated. Findings include cortical irregularity and subtle spurring as well as increased sclerosis to the medial tibial plateau with joint space narrowing and chondrocalcinosis. Decreased patellofemoral joint space is also identified on sunrise view. No evidence for acute or healed fracture. No obvious effusion. Impression: Given the patient's age, findings reflect moderate tricompartmental osteoarthritic degenerative changes. Signed by Keny Vail MD 11/04/2016 02:38 P
== END ==
LOC: M ADAMS 13:08
PROVIDERS: ATTEND Family Medicine
DX: K21.9 Gastro-esophageal reflux disease without esophagitis (principal); M17.12 Unilateral primary osteoarthritis, left knee
CPT/HCPCS: 71020; 73564; G0463

== ENCOUNTER 2016-11-08 08:45 | Emergency (ER) | payer MEDICARE, BC ==
[~2016-11-08] VITALS: Ht 157.5 cm; Wt 59.1 kg
[~2016-11-08 08:45] MED LIST changes: -CALCTAB68 PO; -KETO5OPD OU; -MURO5OIN OU; -NYQU1LIQ PO; -PANT40TA2; -PRED1SUS OU; -TOPR25TA PO; -XARE20TA PO
[2016-11-08] MEDS ORDERED: PANT40TA2 (09:06)
[2016-11-08] MEDS ORDERED: NYQU1LIQ PO (09:32)
[2016-11-08 09:38] VITALS: BP 141/90
[2016-11-27] MEDS ORDERED: CALCTAB68 PO (09:47)
== END 2016-11-08 10:02 | disposition home or self-care (01) ==
LOC: M ED 08:45
DX: R05 Cough (principal); I10 Essential (primary) hypertension; I48.91 Unspecified atrial fibrillation; K57.90 Diverticulosis of intestine, part unspecified, without perforation or abscess without bleeding; F41.9 Anxiety disorder, unspecified; Z79.899 Other long term (current) drug therapy; Z88.8 Allergy status to other drugs, medicaments and biological substances; Z91.018 Allergy to other foods

== ENCOUNTER → 2016-12-03 | Outpatient (REF) | payer MEDICARE, BC ==
[~2016-12-03] MED LIST changes: +CALCTAB68 PO; +KETO5OPD OU; +MURO5OIN OU; +NYQU1LIQ PO; +PANT40TA2; +PRED1SUS OU; +TOPR25TA PO; +XARE20TA PO
[2016-12-03 11:59] LABS: MEAN CORPUSCULAR HEMOGLOBIN 30.9 pg (27.0-33.0); MEAN CORPUSCULAR HGB CONC 32.8 g/dl (32.0-36.5); MEAN CORPUSCULAR VOLUME 94.3 fl (80.0-96.0); RED CELL DISTRIBUTION WIDTH 13.8 % (11.5-14.5); WHITE BLOOD COUNT 7.9 K/mm3 (4.0-10.0)
[2016-12-03 12:06] LABS: FOLATE > 24.0 NG/ML (>5.4); VITAMIN B12 LEVEL 1137 PG/ML (247-911)
[2016-12-03 12:10] LABS: ALBUMIN 3.9 GM/DL (3.2-5.2); ALBUMIN/GLOBULIN RATIO 1.11 (1.00-1.93); ALKALINE PHOSPHATASE 111 U/L (45-117); ALT/SGPT 22 U/L (12-78); ANION GAP 8 MEQ/L (8-16); AST/SGOT 20 U/L (15-37); BILIRUBIN,TOTAL 0.4 MG/DL (0.2-1.0); BLOOD UREA NITROGEN 22 MG/DL (7-18); CALCIUM LEVEL 9.1 MG/DL (8.8-10.2); CARBON DIOXIDE LEVEL 27 MEQ/L (21-32); CHLORIDE LEVEL 103 MEQ/L (98-107); CREATININE FOR GFR 0.92 MG/DL (0.55-1.02); FREE T4 0.95 NG/DL (0.76-1.46); GLOMERULAR FILTRATION RATE > 60.0 (>32); GLUCOSE, FASTING 91 MG/DL (83-110); POTASSIUM SERUM 4.2 MEQ/L (3.5-5.1); SODIUM LEVEL 138 MEQ/L (136-145); TOTAL PROTEIN 7.4 GM/DL (6.4-8.2)
[2016-12-04 08:29] LABS: THYROID PEROXIDASE ANTIBODY < 28.0 U/ML (<60.0)
== END ==
LOC: M SFHCPLAZ 09:49
PROVIDERS: ATTEND Family Medicine
DX: R53.83 Other fatigue (principal); E03.9 Hypothyroidism, unspecified
CPT/HCPCS: 80053; 82607; 82746; 84439; 84443; 85027; 86376; G0463

== ENCOUNTER 2016-12-09 10:07 | Day surgery (SDC) | payer MEDICARE, BC ==
[~2016-12-09] VITALS: Ht 154.9 cm; Wt 59.4 kg
[~2016-12-09 10:07] MED LIST changes: +ACETAMINOPHEN 325 MG TAB PO PRN; +ACETYLCHOLINE OPHTH SOLN 1% 2ML (MIOCHOL-E) As Ordered ONE; +BALANCED SALT IRRIGATION SOLUTION 500ML BAG (FOR OR EYE MACHINE) As Ordered ONE; +CEFUROXIME 1MG/0.1ML INTRACAMERAL INJ As Ordered ONE; +CYCLOPENTOLATE 2% OPHTH SOLN 2ML BTL XX ONE; +HEALON DUET (HEALON 10MG/ML 0.55ML & HEALON ENDOCOAT 30MG/ML 0.85ML) As Ordered ONE; -KETO5OPD OU; +LIDOCAINE 1% SDV 5 ML VIAL As Ordered ONE; +LIDOCAINE 4% INJ 5 ML AMP OU ONE; -MURO5OIN OU; +OFLOXACIN 0.3 % (OCUFLOX) OPTH SOL 5ML XX ONE; +PHENYLEPHRINE 2.5% OPHTH SOL 2ML XX ONE; +POVIDONE-IODINE 5% OPHTH PREP SOL 30ML As Ordered ONE; -PRED1SUS OU; +PROPARACAINE 0.5% OPHTH SOL 15ML OS PRN; -TOPR25TA PO; +TROPICAMIDE 1% OPHTH SOLN 2ML XX ONE; -XARE20TA PO
[2016-12-09] MEDS ORDERED: LR 500 ML IV ONE (10:15)
[2016-12-09] MEDS ORDERED: fentaNYL 100 MCG/2 ML INJECTION (J3010) As Ordered ONE (11:56)
[2016-12-09] MEDS ORDERED: MIDAZOLAM INJ 2 MG/2 ML VIAL (J2250) As Ordered ONE (11:57)
[2016-12-09 12:50] VITALS: BP 143/74
[2016-12-09] MEDS ORDERED: KETOROLAC 0.5% OPHTH SOLN OS ONE (13:00)
[2016-12-09] MEDS ORDERED: AcetaZOLAMIDE 500 MG ER CAP PO ONE (13:00)
[2016-12-09] MEDS ORDERED: TRIMETHOBENZAMIDE 300 MG CAP PO PRN (13:00)
--- NOTE | 2016-12-10 12:50 | RO ---
DATE OF PROCEDURE: 12/09/2016 PREPROCEDURE DIAGNOSIS: Age related nuclear cataract left eye. POSTPROCEDURE DIAGNOSIS: Age related nuclear cataract left eye. PROCEDURE: Phacoemulsification and posterior chamber intraocular lens implantation. The lens used was PCB00, 28.5 diopter. SURGEON: Pina Miller MD CABINETMAKER HELPER: ANESTHESIA: Topical with sedation. DESCRIPTION OF PROCEDURE: The patient was prepped and draped in the usual fashion. A lid speculum was placed between the lids. The eye was fixated. A stab incision was made to the anterior chamber, and 1% non-preserved lidocaine was instilled. Then, viscoelastic was instilled. The eye was re-fixated. A 2.75 mm sapphire keratome was used to make a clear corneal temporal limbal incision. Capsulorrhexis was begun with a 30-gauge bent needle and then carried out in a circular fashion with capsulorrhexis forceps. The lens was hydrodissected, and then the phacoemulsification unit was used to make a groove in the nucleus in two meridians. The nucleus was then cracked into four quadrants. Each quadrant was removed with the phacoemulsification unit. Any remaining cortex was removed with the irrigation and aspiration (I and A) unit. Capsular bag was refilled with viscoelastic. A posterior chamber intraocular lens was placed in the capsular bag without difficulty. Any remaining viscoelastic was removed with the I and A unit. The wound was hydrated, and Miochol and cefuroxime were instilled into the anterior chamber. The patient tolerated the procedure well and went to the recovery room in stable condition.
== END 2016-12-09 13:20 | disposition home or self-care (01) ==
LOC: M SDC 10:07
PROVIDERS: ATTEND Ophthalmology
DX: H25.12 Age-related nuclear cataract, left eye (principal); K57.92 Diverticulitis of intestine, part unspecified, without perforation or abscess without bleeding; K21.9 Gastro-esophageal reflux disease without esophagitis; M17.0 Bilateral primary osteoarthritis of knee; F41.9 Anxiety disorder, unspecified; E03.9 Hypothyroidism, unspecified; R53.83 Other fatigue; J44.9 Chronic obstructive pulmonary disease, unspecified; F03.90 Unspecified dementia, unspecified severity, without behavioral disturbance, psychotic disturbance, mood disturbance, and anxiety; E78.5 Hyperlipidemia, unspecified; R73.01 Impaired fasting glucose; Z87.442 Personal history of urinary calculi; Z88.8 Allergy status to other drugs, medicaments and biological substances; Z91.018 Allergy to other foods; Z79.899 Other long term (current) drug therapy
CPT/HCPCS: 66984; J2250; J3010; V2632

== ENCOUNTER 2016-12-16 07:30 | Day surgery (SDC) | payer MEDICARE, BC ==
[~2016-12-16] VITALS: Ht 154.9 cm; Wt 59.4 kg
[~2016-12-16 07:30] MED LIST changes: +CYCLOPENTOLATE 2% OPHTH SOLN 2ML BTL OD ONE; -CYCLOPENTOLATE 2% OPHTH SOLN 2ML BTL XX ONE; +LIDOCAINE 3.5 % 1ML OPHTH TOPICAL GEL OU ONE; -LIDOCAINE 4% INJ 5 ML AMP OU ONE; +OFLOXACIN 0.3 % (OCUFLOX) OPTH SOL 5ML OD ONE; -OFLOXACIN 0.3 % (OCUFLOX) OPTH SOL 5ML XX ONE; +PHENYLEPHRINE 2.5% OPHTH SOL 2ML OD ONE; -PHENYLEPHRINE 2.5% OPHTH SOL 2ML XX ONE; +PROPARACAINE 0.5% OPHTH SOL 15ML OD PRN; -PROPARACAINE 0.5% OPHTH SOL 15ML OS PRN; +TROPICAMIDE 1% OPHTH SOLN 2ML OD ONE; -TROPICAMIDE 1% OPHTH SOLN 2ML XX ONE
[2016-12-16] MEDS ORDERED: D5W/0.2% SODIUM CHLORIDE 1,000 ML IV SCH ×2 (07:45→09:45)
[2016-12-16] MEDS ORDERED: MIDAZOLAM INJ 2 MG/2 ML VIAL (J2250) As Ordered ONE (08:10)
[2016-12-16] MEDS ORDERED: fentaNYL 100 MCG/2 ML INJECTION (J3010) As Ordered ONE (08:10)
[2016-12-16] MEDS ORDERED: KETOROLAC 0.5% OPHTH SOLN OD ONE (09:30)
[2016-12-16] MEDS ORDERED: AcetaZOLAMIDE 500 MG ER CAP PO ONE (09:30)
[2016-12-16] MEDS ORDERED: TRIMETHOBENZAMIDE 300 MG CAP PO PRN (09:30)
[2016-12-16] MEDS ORDERED: ONDANSETRON 4MG/2ML VIAL (J2405) IV PRN (09:45)
[2016-12-16 10:00] VITALS: BP 132/79
--- NOTE | 2016-12-17 08:53 | RO ---
DATE OF PROCEDURE: 12/16/2016 PREPROCEDURE DIAGNOSIS: Age related nuclear cataract right eye. POSTPROCEDURE DIAGNOSIS: Age related nuclear cataract right eye. PROCEDURE: Phacoemulsification and posterior chamber intraocular lens implantation. The lens used was PCB00, 25.5 diopter. SURGEON: Pina Miller MD TAX ANALYST: ANESTHESIA: Topical with sedation. DESCRIPTION OF PROCEDURE: The patient was prepped and draped in the usual fashion. A lid speculum was placed between the lids. The eye was fixated. A stab incision was made to the anterior chamber, and 1% non-preserved lidocaine was instilled. Then, viscoelastic was instilled. The eye was re-fixated. A 2.75 mm sapphire keratome was used to make a clear corneal temporal limbal incision. Capsulorrhexis was begun with a 30-gauge bent needle and then carried out in a circular fashion with capsulorrhexis forceps. The lens was hydrodissected, and then the phacoemulsification unit was used to make a groove in the nucleus in two meridians. The nucleus was then cracked into four quadrants. Each quadrant was removed with the phacoemulsification unit. Any remaining cortex was removed with the irrigation and aspiration (I and A) unit. Capsular bag was refilled with viscoelastic. A posterior chamber intraocular lens was placed in the capsular bag without difficulty. Any remaining viscoelastic was removed with the I and A unit. The wound was hydrated, and Miochol and cefuroxime were instilled into the anterior chamber. The patient tolerated the procedure well and went to the recovery room in stable condition.
== END 2016-12-16 10:12 | disposition home or self-care (01) ==
LOC: M SDC 07:30
PROVIDERS: ATTEND Ophthalmology
DX: H25.11 Age-related nuclear cataract, right eye (principal); K57.92 Diverticulitis of intestine, part unspecified, without perforation or abscess without bleeding; K21.9 Gastro-esophageal reflux disease without esophagitis; M17.0 Bilateral primary osteoarthritis of knee; F41.9 Anxiety disorder, unspecified; E03.9 Hypothyroidism, unspecified; R53.83 Other fatigue; J44.9 Chronic obstructive pulmonary disease, unspecified; F03.90 Unspecified dementia, unspecified severity, without behavioral disturbance, psychotic disturbance, mood disturbance, and anxiety; E78.5 Hyperlipidemia, unspecified; R73.01 Impaired fasting glucose; Z87.442 Personal history of urinary calculi; Z88.8 Allergy status to other drugs, medicaments and biological substances; Z91.018 Allergy to other foods; Z79.899 Other long term (current) drug therapy
CPT/HCPCS: 66984; J2250; J3010; V2632

== ENCOUNTER 2016-12-29 14:25 | Observation (INO) | payer MEDICARE, BC ==
[~2016-12-29] VITALS: Ht 160 cm; Wt 58.0 kg
[~2016-12-29 14:25] MED LIST changes: -ACETAMINOPHEN 325 MG TAB PO PRN; -ACETYLCHOLINE OPHTH SOLN 1% 2ML (MIOCHOL-E) As Ordered ONE; -BALANCED SALT IRRIGATION SOLUTION 500ML BAG (FOR OR EYE MACHINE) As Ordered ONE; -CEFUROXIME 1MG/0.1ML INTRACAMERAL INJ As Ordered ONE; -CYCLOPENTOLATE 2% OPHTH SOLN 2ML BTL OD ONE; -HEALON DUET (HEALON 10MG/ML 0.55ML & HEALON ENDOCOAT 30MG/ML 0.85ML) As Ordered ONE; -LIDOCAINE 1% SDV 5 ML VIAL As Ordered ONE; -LIDOCAINE 3.5 % 1ML OPHTH TOPICAL GEL OU ONE; -OFLOXACIN 0.3 % (OCUFLOX) OPTH SOL 5ML OD ONE; -PHENYLEPHRINE 2.5% OPHTH SOL 2ML OD ONE; -POVIDONE-IODINE 5% OPHTH PREP SOL 30ML As Ordered ONE; -PROPARACAINE 0.5% OPHTH SOL 15ML OD PRN; -TROPICAMIDE 1% OPHTH SOLN 2ML OD ONE
[2016-12-29] MEDS ORDERED: METOPROLOL 5 MG/5 ML VIAL IV SCH (15:00)
[2016-12-29 15:27] LABS: BASO % 0.5 % (0.0-1.0); EOS # 0.8 K/mm3 (0.0-0.50); LARGE UNSTAINED CELL # 0.2 K/mm3 (0.0-0.4); LARGE UNSTAINED CELL % 1.6 % (0.0-4.0); LYMPH # 2.4 K/mm3 (1.5-4.5); LYMPH % 20.8 % (24.0-44.0); MEAN CORPUSCULAR HEMOGLOBIN 30.6 pg (27.0-33.0); MEAN CORPUSCULAR HGB CONC 32.4 g/dl (32.0-36.5); MEAN CORPUSCULAR VOLUME 94.6 fl (80.0-96.0); MONO # 0.5 K/mm3 (0.0-0.8); MONO % 4.7 % (0.0-5.0); NEUTROPHILS # 7.1 K/mm3 (1.8-7.7); NEUTROPHILS % 65.4 % (36.0-66.0); PLATELET COUNT, AUTOMATED 303 k/mm3 (150-450); RED CELL DISTRIBUTION WIDTH 13.6 % (11.5-14.5); WHITE BLOOD COUNT 10.8 K/mm3 (4.0-10.0)
[2016-12-29 15:30] VITALS: BP 158/102
[2016-12-29 15:33] LABS: INR 1.05
[2016-12-29] MEDS ORDERED: KETO5OPD OU (16:01)
[2016-12-29] MEDS ORDERED: MURO5OIN OU (16:01)
[2016-12-29] MEDS ORDERED: PRED1SUS OU (16:01)
[2016-12-29 16:10] LABS: ALKALINE PHOSPHATASE 109 U/L (45-117); ALT/SGPT 25 U/L (12-78); AST/SGOT 23 U/L (15-37); BILIRUBIN,DIRECT < 0.1 MG/DL (0.0-0.2); BILIRUBIN,TOTAL 0.2 MG/DL (0.2-1.0); BLOOD UREA NITROGEN 19 MG/DL (7-18); CHLORIDE LEVEL 107 MEQ/L (98-107); CREATININE FOR GFR 0.89 MG/DL (0.55-1.02); FREE T4 1.16 NG/DL (0.76-1.46); GLUCOSE, FASTING 96 MG/DL (83-110); POTASSIUM SERUM 4.4 MEQ/L (3.5-5.1); SODIUM LEVEL 142 MEQ/L (136-145); TOTAL PROTEIN 7.5 GM/DL (6.4-8.2)
[2016-12-29 16:55] LABS: ALBUMIN 3.6 GM/DL (3.2-5.2); ALBUMIN/GLOBULIN RATIO 0.92 (1.00-1.93); ANION GAP 9 MEQ/L (8-16); CARBON DIOXIDE LEVEL 26 MEQ/L (21-32)
[2016-12-29 17:07] LABS: MAGNESIUM LEVEL 2.2 MG/DL (1.8-2.4)
[2016-12-29] MEDS: METOPROLOL TART 25 MG TABLET PO SCH (17:25)
[2016-12-29] MEDS: RIVAROXABAN 20 MG TAB (XARELTO) PO SCH (17:26)
[2016-12-29 20:00] VITALS: BP 119/82
[2016-12-30] VITALS (7 sets, daily range): BP systolic 130–153; BP diastolic 79–96
[2016-12-30] MEDS: METOPROLOL TART 25 MG TABLET PO SCH ×4 (00:18→18:11)
[2016-12-30] MEDS ORDERED: SLF 3 ML SYR IV PRN (00:30)
[2016-12-30 05:31] LABS: MEAN CORPUSCULAR HGB CONC 33.4 g/dl (32.0-36.5); MEAN CORPUSCULAR VOLUME 92.9 fl (80.0-96.0); RED CELL DISTRIBUTION WIDTH 13.2 % (11.5-14.5); WHITE BLOOD COUNT 8.1 K/mm3 (4.0-10.0)
[2016-12-30] MEDS: SLF 3 ML SYR IV SCH ×3 (05:42→22:08)
[2016-12-30 05:45] LABS: ANION GAP 4 MEQ/L (8-16); BLOOD UREA NITROGEN 19 MG/DL (7-18); CARBON DIOXIDE LEVEL 27 MEQ/L (21-32); CHLORIDE LEVEL 107 MEQ/L (98-107); CREATININE FOR GFR 0.79 MG/DL (0.55-1.02); GLOMERULAR FILTRATION RATE > 60.0 (>32); GLUCOSE, FASTING 93 MG/DL (83-110); POTASSIUM SERUM 4.3 MEQ/L (3.5-5.1); SODIUM LEVEL 138 MEQ/L (136-145)
--- NOTE | 2016-12-30 08:39 | ECGEPIP ---
Stationary ECG Study [facility] - ED Test Date: 2016-12-29 Pat Name: ANALILIA BONNER Department: Room: - Gender: F Broadcast Field Supervisor: tk : [id number] Requested By: Renetta Chadwick Order Number: [id number] Reading MD: Baljit Mathews Measurements Intervals [place] Rate: 104 P: OK: 0 QRS: 6 QRSD: 121 T: -6 QT: 348 QTc: 459 Interpretive Statements ATRIAL FIBRILLATION WITH RAPID VENTRICULAR RESPONSE RIGHT BUNDLE BRANCH BLOCK RHYTHM CHNAGE COMPARED TO 09/04/16 Electronically Signed On 12-30-2016 8:39:22 EDT by Baljit Mathews
--- NOTE | 2016-12-30 09:54 | IPNPDOC ---
Subjective Date Seen The patient was seen on 12/30/16. Subjective Chief Complaint/HPI The patient is a 86-year-old female admitted with a reason for visit of A-Fib W/ Rvr. Events since last encounter Feels well. No complaints Constitutional: Denies: Chills, Fever Pulmonary: Denies: Dyspnea, Cough Cardiovascular: Denies: Chest Pain, Palpitations, Orthopnea Gastrointestinal: Denies: Nausea, Vomiting, Abdominal Pain, Diarrhea, Constipation Objective Physical Examination General Exam: Positive: Alert, No Acute Distress, Other (Very poor short term memory - with confusion) Chest Exam: Positive: Clear to auscultation, Normal air movement Heart Exam: Positive: Rate Normal, Irregular Rhythm, Negative: Murmurs Abdomen Exam: Positive: Normal bowel sounds, Soft, Negative: Tenderness Extremity Exam: Negative: Edema Assessment /Plan Problems (1) Atrial fibrillation with rapid ventricular response Status: Acute Response to Treatment: Improving Problem Text: rate controlled with Metoprolol Xarelto started. - send to pharmacy to assure this is covered (Patient is a poor Coumadin candidate due to very poor short term memory and poor compliance with medical appointments - son is available to administer meds once a day therefore Xarelto is a reasonable option for anticoagulation) (2) Dementia Status: Chronic Response to Treatment: Stable Plan/VTE VTE Prophylaxis Ordered?: Yes (Xarelto) Plan Therapy: PT (PFS aware of need to assess home situation to assure safe discharge. Get PT to assess safety with ambulation. Probable d/c 12/31) Family Medicine Attending note: Patient seen and examined this morning; she was oriented to person this morning but not to date, place, or situation. I agree with Adry Damon's note above. Rate controlled on metoprolol and I agree with xarelto for anticoagulation; await PT recommendations concerning safety and we appreciate PFS assistance. (KES) VS, I&O, 24H, Fishbone Vital Signs/I&O Vital Signs Date Time Temp Pulse Resp B/P (MAP) Pulse Ox O2 Delivery O2 Flow Rate FiO2 12/30/16 07:58 96.4 60 18 139/79 (99) 100 Room Air I&O- Last 24 Hours up to 6 AM 12/30/16 06:00 Intake Total 360 ml Output Total 625 ml Balance -265 ml Laboratory Data 24H LABS Laboratory Tests 2 12/29/16 15:09: White Blood Count 10.8H, Red Blood Count 4.26, Hemoglobin 13.0, Hematocrit 40.3 , Mean Corpuscular Volume 94.6, Mean Corpuscular Hemoglobin 30.6, Mean Corpuscular Hemoglobin Concent 32.4, Red Cell Distribution Width 13.6, Platelet Count 303, Neutrophils (%) (Auto) 65.4, Lymphocytes (%) (Auto) 20.8L, Monocytes (%) (Auto) 4.7, Eosinophils (%) (Auto) 7.0H, Basophils (%) (Auto) 0.5, Neutrophils # (Auto) 7.1, Lymphocytes # (Auto) 2.4, Monocytes # (Auto) 0.5, Eosinophils # (Auto) 0.8H, Basophils # (Auto) 0.0, Large Unclassified Cells % 1.6, Large Unclassified Cells # 0.2, Prothrombin Time 13.8, Prothromb Time International Ratio 1.05, Anion Gap 9, Calcium Level 9.0, Magnesium Level 2.2, Aspartate Amino Transf (AST/SGOT) 23, Alanine Aminotransferase (ALT/SGPT) 25, Alkaline Phosphatase 109, Total Bilirubin 0.2, Direct Bilirubin < 0.1, Total Creatine Kinase 67, Creatine Kinase MB 1.0, Creatine Kinase MB Relative Index 1.49, Troponin I 0.05, B-Type Natriuretic Peptide 120H, Total Protein 7.5, Albumin 3.6, Albumin/Globulin Ratio 0.92L, Lipase 190, Thyroid Stimulating Hormone (TSH) 1.590, Free Thyroxine 1.16 12/29/16 21:43: Total Creatine Kinase 60, Creatine Kinase MB 1.0, Creatine Kinase MB Relative Index 1.66, Troponin I 0.05 12/30/16 05:07: Anion Gap 4L, Calcium Level 9.0, Total Creatine Kinase 52, Creatine Kinase MB 1.0, Creatine Kinase MB Relative Index 1.92, Troponin I 0.05, Glomerular Filtration Rate > 60.0, Blood Urea Nitrogen 19H, Creatinine 0.79, Sodium Level 138, Potassium Level 4.3, Chloride Level 107, Carbon Dioxide Level 27 CBC/BMP Laboratory Tests 12/29/16 15:09 Red Blood Count 4.26, Mean Corpuscular Volume 94.6, Mean Corpuscular Hemoglobin 30.6, Mean Corpuscular Hemoglobin Concent 32.4, Red Cell Distribution Width 13.6 , Neutrophils (%) (Auto) 65.4, Lymphocytes (%) (Auto) 20.8 L, Monocytes (%) ( Auto) 4.7, Eosinophils (%) (Auto) 7.0 H, Basophils (%) (Auto) 0.5, Neutrophils # (Auto) 7.1, Lymphocytes # (Auto) 2.4, Monocytes # (Auto) 0.5, Eosinophils # ( Auto) 0.8 H, Basophils # (Auto) 0.0 12/30/16 05:07 Red Blood Count 4.33, Mean Corpuscular Volume 92.9, Mean Corpuscular Hemoglobin 31.0, Mean Corpuscular Hemoglobin Concent 33.4, Red Cell Distribution Width 13.2 , Calcium Level 9.0, Total Creatine Kinase 52 ADRY DAMON PA-C Dec 30, 2016 09:54 SHA DOLL MD Dec 30, 2016 10:31
[2016-12-30] MEDS: prednisoLONE ACET 1% OPHTH SUSP 5ML OU SCH (18:11)
[2016-12-30] MEDS: RIVAROXABAN 20 MG TAB (XARELTO) PO SCH (18:11)
[2016-12-30] MEDS: KETOROLAC 0.5% OPHTH SOLN OU SCH (18:11)
[2016-12-31] VITALS (7 sets, daily range): BP systolic 114–159; BP diastolic 58–81
[2016-12-31] MEDS: prednisoLONE ACET 1% OPHTH SUSP 5ML OU SCH ×5 (00:11→23:57)
[2016-12-31] MEDS: KETOROLAC 0.5% OPHTH SOLN OU SCH ×5 (00:11→23:58)
[2016-12-31 05:33] LABS: MEAN CORPUSCULAR HEMOGLOBIN 31.4 pg (27.0-33.0); MEAN CORPUSCULAR HGB CONC 33.9 g/dl (32.0-36.5); MEAN CORPUSCULAR VOLUME 92.7 fl (80.0-96.0); RED CELL DISTRIBUTION WIDTH 13.6 % (11.5-14.5); WHITE BLOOD COUNT 9.4 K/mm3 (4.0-10.0)
[2016-12-31] MEDS: METOPROLOL TART 25 MG TABLET PO SCH ×3 (05:44→18:50)
[2016-12-31] MEDS: SLF 3 ML SYR IV SCH ×3 (05:44→22:00)
[2016-12-31 05:51] LABS: ANION GAP 9 MEQ/L (8-16); BLOOD UREA NITROGEN 17 MG/DL (7-18); CALCIUM LEVEL 8.8 MG/DL (8.8-10.2); CARBON DIOXIDE LEVEL 24 MEQ/L (21-32); CHLORIDE LEVEL 107 MEQ/L (98-107); CREATININE FOR GFR 0.78 MG/DL (0.55-1.02); GLOMERULAR FILTRATION RATE > 60.0 (>32); GLUCOSE, FASTING 93 MG/DL (83-110); POTASSIUM SERUM 4.2 MEQ/L (3.5-5.1); SODIUM LEVEL 140 MEQ/L (136-145)
[2016-12-31] MEDS: METOPROLOL SUCC *XL* 12.5MG PER 1/2 TAB (TopROL *XL*) PO SCH (09:00)
--- NOTE | 2016-12-31 09:56 | IPNPDOC ---
Subjective Date Seen The patient was seen on 12/31/16. Subjective Chief Complaint/HPI The patient is a 86-year-old female admitted with a reason for visit of A-Fib W/ Rvr. Events since last encounter No complaints. Constitutional: Denies: Chills, Fever Pulmonary: Denies: Dyspnea, Cough Cardiovascular: Denies: Chest Pain, Palpitations, Orthopnea Gastrointestinal: Denies: Nausea, Vomiting, Abdominal Pain, Diarrhea, Constipation Objective Physical Examination General Exam: Positive: Alert, No Acute Distress, Other (Very poor short term memory - with confusion) Chest Exam: Positive: Clear to auscultation, Normal air movement Heart Exam: Positive: Bradycardic, Regular Rhythm, Negative: Murmurs Abdomen Exam: Positive: Normal bowel sounds, Soft, Negative: Tenderness Extremity Exam: Negative: Edema Assessment /Plan Problems (1) Atrial fibrillation with rapid ventricular response Status: Acute Response to Treatment: Improving Problem Text: 12/30 - Converted to Sr over night. Rate dropped to 45 while sleeping. No pauses. Lopressor held x 2 doses due to andrei cardia I will switch to low dose Toprol XL and monitor HR trend (Her son is only in the home once a day to administer meds therefore once daily dosing of Toprol XL would be best if tolerates) Continue Xarelto - (No prior auth needed per PFS) (Patient is a poor Coumadin candidate due to very poor short term memory and poor compliance with medical appointments - son is available to administer meds once a day therefore Xarelto is a reasonable option for anticoagulation) (2) Dementia Status: Chronic Response to Treatment: Stable Plan/VTE VTE Prophylaxis Ordered?: Yes (Xarelto) Plan Therapy: PT (Safe per PT) Disposition D/C home in am depending on HR trends and if PFS feels home situation is safe - patient is home alone most of the day VS, I&O, 24H, Fishbone Vital Signs/I&O Vital Signs Date Time Temp Pulse Resp B/P (MAP) Pulse Ox O2 Delivery O2 Flow Rate FiO2 12/31/16 08:00 97.0 61 18 134/72 (92) 99 Room Air I&O- Last 24 Hours up to 6 AM 12/31/16 06:00 Intake Total 780 ml Output Total 200 ml Balance 580 ml Laboratory Data 24H LABS Laboratory Tests 2 12/30/16 14:01: Total Creatine Kinase 69, Creatine Kinase MB 1.0, Creatine Kinase MB Relative Index 1.44, Troponin I 0.04 12/31/16 03:53: Urine Appearance CLEAR, Urine Color YELLOW, Urine pH 5.0, Urine Specific [place] 1.009, Urine Protein NEGATIVE, Urine Glucose (UA) NEGATIVE, Urine Ketones NEGATIVE, Urine Urobilinogen 0.2, Urine Bilirubin NEGATIVE, Urine Leukocyte Esterase 1+H, Urine Blood NEGATIVE, Urine Nitrite NEGATIVE, Urine WBC (Auto) 12H, Urine RBC (Auto) 4H, Urine Hyaline Casts (Auto) 1, Urine Bacteria ( Auto) 1+H, Urine Squamous Epithelial Cells 0, Urine Mucus (Auto) SMALL, Urine Sperm (Auto) 12/31/16 05:13: Anion Gap 9, Glomerular Filtration Rate > 60.0, Blood Urea Nitrogen 17, Creatinine 0.78, Sodium Level 140, Potassium Level 4.2, Chloride Level 107, Carbon Dioxide Level 24, Calcium Level 8.8 CBC/BMP Laboratory Tests 12/31/16 05:13 Red Blood Count 3.94 L, Mean Corpuscular Volume 92.7, Mean Corpuscular Hemoglobin 31.4, Mean Corpuscular Hemoglobin Concent 33.9, Red Cell Distribution Width 13.6, Calcium Level 8.8 Microbiology Microbiology 12/31/16 Urine Culture, Received Pending NAOMY DAMON PA-C Dec 31, 2016 09:56
[2016-12-31] MEDS: RIVAROXABAN 20 MG TAB (XARELTO) PO SCH (18:13)
[2017-01-01 05:36] VITALS: BP 123/66
[2017-01-01] MEDS: METOPROLOL TART 25 MG TABLET PO SCH (06:00)
[2017-01-01] MEDS: prednisoLONE ACET 1% OPHTH SUSP 5ML OU SCH ×2 (06:48→11:25)
[2017-01-01] MEDS: SLF 3 ML SYR IV SCH (06:48)
[2017-01-01] MEDS: KETOROLAC 0.5% OPHTH SOLN OU SCH ×2 (06:48→11:25)
[2017-01-01 08:00] VITALS: BP 110/69
[2017-01-01] MEDS ORDERED: XARE20TA PO (11:19)
[2017-01-01] MEDS ORDERED: TOPR25TA PO (11:19)
--- NOTE | 2017-01-02 13:36 | DSES ---
DATE OF ADMISSION: 12/29/2016 DATE OF DISCHARGE: 01/01/2017 BRIEF HISTORY AND PHYSICAL: The patient is an 86-year-old patient of Dr. Maldonado, who presented to the office with her son who was concerned that she may be dehydrated due to poor oral intake. She vomited a few days ago but has had no vomiting since and no diarrhea. She has a history of paroxysmal atrial fibrillation and is noncompliant with medications and appointments, but denies any cardiac symptoms such as palpitations, shortness of breath or chest pain. PAST MEDICAL HISTORY: Significant for diverticulosis, anxiety, chronic obstructive pulmonary disease (COPD), hyperlipidemia, esophageal reflux, impaired fasting glucose, dementia, paroxysmal atrial fibrillation converted to sinus rhythm in September 2016, microvascular ischemic changes of the brain per MRI in 2008, noncompliant with prescriptions for dementia, subclinical hypothyroidism. She presented with atrial fibrillation with a ventricular rate between 80 and 158 and was admitted for rate control and initiation of anticoagulation. Her pertinent labs on admission: White count 10.8, hemoglobin 13, platelets 303,000. Sodium 142, potassium 4.4, BUN 19, creatinine 0.89, glucose 96, TSH 1.59, which is normal. CIP and troponin were normal. Chest x-ray showed no active disease. PT/INR was normal. HOSPITAL COURSE: The patient was admitted for atrial fibrillation with rapid ventricular response on telemetry with initiation of metoprolol for rate control and Xarelto for anticoagulation. She underwent an echocardiogram that showed mild focal hypertrophy of the basal anterior ventricular septum. Normal regional left ventricular wall motion and wall thickening, normal left ventricular systolic function with ejection fraction of 60%, moderate mitral annular calcification. No mitral stenosis. Moderate mitral regurgitation. Moderate aortic valve sclerosis. Very mild aortic regurgitation. No aortic stenosis. There is a moderate elevation of pulmonary systolic pressure and estimated right ventricular systolic pressure. Normal right ventricular size and systolic function. Structurally normal-appearing tricuspid leaflets. Moderate tricuspid regurgitation. Thyroid function was normal. She converted to sinus rhythm on Lopressor and developed some bradycardia on Lopressor 25 mg every 6 hours, which required them to hold that medication. She did, however, go back into paroxysmal atrial fibrillation with somewhat rapid rate of 120. It appears she is going to need some form of rate control. At this time, she is back in sinus in the 50s and 60s. A small dose of Toprol XL will be ordered upon discharge at 25 mg daily. It should be noted that her son is able to administer her medicines once a day and therefore the XL dose of Toprol is going to be the most likely one that she will actually take. She has a history of noncompliance with medications as it is. Also, as far as anticoagulation is concerned, she is a terrible Coumadin candidate because she does not come in for appointments and is noncompliant with taking medications but her son thinks that if she has a once a day dose he can assure that she will take it and therefore Xarelto has been ordered. She has no signs of developing any anemia or bleeding thus far with the Xarelto that was started. The medication was sent to her pharmacy and does not need prior authorization. She is walking around and steady on her feet. Although she is demented, is eating well and physically strong enough to go back home with her son, who is with her most of the time. DISPOSITION: Stable for discharge home. Followup with Dr. Etienne next week. Diet regular. Activity as tolerated. MEDICATIONS: - Toprol XL 25 mg daily - Xarelto 20 mg daily - Ketorolac ophthalmic to both eyes every 6 hours - prednisolone ophthalmic to both eyes every 6 hours - sodium chloride opthalmic to both eyes every 6 hours - multivitamin daily DISCHARGE DIAGNOSES: 1. Paroxysmal atrial fibrillation with rapid ventricular response. 2. Advanced dementia. 3. Noncompliance. edited: 01/05/2017 [id number]
== END 2017-01-01 13:10 | disposition home health service (06) ==
LOC: M ED 14:25 → INTOOBSV 14:26 → M ED INP 14:26 → M PCU 16:06
PROVIDERS: ADMIT Family Medicine; ATTEND Family Medicine
DX: I48.0 Paroxysmal atrial fibrillation (principal); F03.90 Unspecified dementia, unspecified severity, without behavioral disturbance, psychotic disturbance, mood disturbance, and anxiety; Z91.19 Patient's noncompliance with other medical treatment and regimen; J44.9 Chronic obstructive pulmonary disease, unspecified; I10 Essential (primary) hypertension; E78.5 Hyperlipidemia, unspecified; K21.9 Gastro-esophageal reflux disease without esophagitis; R73.01 Impaired fasting glucose; I67.82 Cerebral ischemia; E02 Subclinical iodine-deficiency hypothyroidism; F41.9 Anxiety disorder, unspecified; K57.90 Diverticulosis of intestine, part unspecified, without perforation or abscess without bleeding; M40.204 Unspecified kyphosis, thoracic region; Z88.8 Allergy status to other drugs, medicaments and biological substances; Z79.899 Other long term (current) drug therapy
CPT/HCPCS: 36415; 71020; 80048; 80053; 81001; 82550; 82553; 83690; 83735; 83880; 84439; 84443; 84484; 85025; 85027; 85610; 85730; 87086; 93005; 93041; 93306; 94760; 97161; 99285; G0378; G0463; G8978; G8979; G8980

== ENCOUNTER → 2017-07-06 | Outpatient (REF) | payer MEDICARE, BC ==
[2017-07-06 20:28] LABS: HEMATOCRIT 40.5 % (36.0-47.0); HEMOGLOBIN 12.9 g/dl (12.0-16.0); MEAN CORPUSCULAR HEMOGLOBIN 30.3 pg (27.0-33.0); MEAN CORPUSCULAR HGB CONC 31.9 g/dl (32.0-36.5); MEAN CORPUSCULAR VOLUME 95.1 fl (80.0-96.0); PLATELET COUNT, AUTOMATED 345 10^3/uL (150-450); RED BLOOD COUNT 4.26 10^6/uL (4.00-5.40); RED CELL DISTRIBUTION WIDTH 13.5 % (11.5-14.5); WHITE BLOOD COUNT 8.6 10^3/uL (4.0-10.0)
[2017-07-06 20:58] LABS: ALBUMIN 3.7 GM/DL (3.2-5.2); ALBUMIN/GLOBULIN RATIO 0.93 (1.00-1.93); ALKALINE PHOSPHATASE 131 U/L (45-117); ALT/SGPT 33 U/L (12-78); ANION GAP 7 MEQ/L (8-16); AST/SGOT 30 U/L (7-37); BILIRUBIN,TOTAL 0.4 MG/DL (0.2-1.0); BLOOD UREA NITROGEN 17 MG/DL (7-18); CALCIUM LEVEL 9.3 MG/DL (8.8-10.2); CARBON DIOXIDE LEVEL 31 MEQ/L (21-32); CHLORIDE LEVEL 102 MEQ/L (98-107); CREATININE FOR GFR 0.87 MG/DL (0.55-1.30); FREE T4 0.95 NG/DL (0.76-1.46); GLOMERULAR FILTRATION RATE > 60.0 (>32); GLUCOSE, FASTING 95 MG/DL (70-100); POTASSIUM SERUM 4.4 MEQ/L (3.5-5.1); SODIUM LEVEL 140 MEQ/L (136-145); TOTAL PROTEIN 7.7 GM/DL (6.4-8.2)
[2017-07-06 21:20] LABS: APPEARANCE, URINE MANUAL CLOUDY (CLEAR); BILIRUBIN, URINE MANUAL NEGATIVE (NEGATIVE); COLOR, URINE MANUAL YELLOW (YELLOW); GLUCOSE, URINE (UA) MANUAL NEGATIVE (NEGATIVE); KETONE, URINE MANUAL NEGATIVE (NEGATIVE); LEUKOCYTE ESTERASE, URINE MAN POSITIVE (NEGATIVE); NITRITE, URINE MANUAL NEGATIVE (NEGATIVE); PH,URINE MAN 6.5 UNITS (5.0 - 7.0); PROTEIN, URINE MANUAL 1+ mg/dL (NEGATIVE); SPECIFIC GRAVITY,URINE MANUAL 1.005 (1.002-1.035); UROBILINOGEN, URINE MANUAL NORMAL (NORMAL)
[2017-07-06 21:21] LABS: BLOOD URINE MANUAL POSITIVE (NEGATIVE); MICROSCOPIC INDICATED? MAN YES (NO)
[2017-07-06 21:42] LABS: BACTERIA, URINE LARGE AMOUNT; HYALINE CAST, URINE NONE SEEN /lpf (0-1); MICROSCOPIC EXAM PERFORMED; SQUAMOUS EPITHELIAL CELL URINE SMALL AMOUNT /hpf (SMALL AMT); WBC, URINE TNTC /hpf (0-3)
== END ==
LOC: M SFHCADAM 15:51
DX: R35.0 Frequency of micturition (principal); F03.90 Unspecified dementia, unspecified severity, without behavioral disturbance, psychotic disturbance, mood disturbance, and anxiety; E03.9 Hypothyroidism, unspecified
CPT/HCPCS: 84443

== ENCOUNTER → 2017-12-20 | Outpatient (REF) | payer MEDICARE, BC ==
[2017-12-20 19:59] LABS: ESTIMATED AVERAGE GLUCOSE 120 MG/DL (60-110); HEMOGLOBIN A1c 5.8 %
== END ==
LOC: M SFHCADAM 19:12
DX: R35.0 Frequency of micturition (principal); Z79.899 Other long term (current) drug therapy; Z23 Encounter for immunization
CPT/HCPCS: 83036